=== PATIENT | male | born 2000 | race Caucasian/White ===

== ENCOUNTER 2023-05-05 18:24 | Emergency (ER) | payer BC, SELFPAY ==
[2023-05-05 18:46] VITALS: BP 117/74; PULSE 75; RESP 18; TEMP 36.9; O2SAT 98
--- NOTE | 2023-05-05 18:53 | ED.ANIMALBIT ---
HPI - Animal Bite General Chief Complaint: Skin/Abscess/Foreign Body Stated Complaint: dog bite right hand Time Seen by Provider: 05/05/23 18:50 Source: patient Mode of arrival: ambulatory Limitations: no limitations History of Present Illness HPI narrative: Kenneth is a 22-year-old male patient presenting to the clinic today with complaints of a dog bite/puncture wound to the right hand/wrist. Patient reports this [place] the dog park and his dog got into a scuffle with another dog and he tried to separate them and was bitten. Has a puncture wound to the right medial palm and minor abrasion over the volar aspect of the wrist. Last tetanus was when he was 14 Related Data Allergies Allergy/AdvReac Type Severity Reaction Status Date / Time No Known Allergies Allergy Verified 05/05/23 18:46 Review of Systems Review of Systems: Pertinent positives per HPI. Patient denies any fever, chills, rash, headache, visual changes, dizziness, cough, runny nose, sore throat, shortness of breath, chest pain, palpitations, nausea, vomiting, diarrhea, constipation, abdominal pain, or any urinary issues. PMFSH Comments At the time of my signature, I reviewed and agree with the nursing past medical, surgical, social, and family history. There is no relevant family history pertinent to the patient complaint. Exam Narrative: General: Well-developed, well nourished, in no apparent distress Head: Normocephalic, atraumatic. Cardio: Regular rate and rhythm, s1 and s2 normal, no murmur appreciated. Resp: Clear to auscultation bilaterally, no rhonchi, rales, wheezing or rubs. Integumentary: Whiteash, warm, and dry, puncture wound to the medial volar aspect of the right palm-bleeding controlled, 2 small abraded wounds to the right mid volar wrist Course Course Emergency Course: Portions of this record may have been created with voice recognition software. Level of Care: Express Care Visit Vital Signs Vital signs: Vital Signs Temperature 36.9 C 05/05/23 18:46 Pulse Rate 75 05/05/23 18:46 Respiratory Rate 18 05/05/23 18:46 Blood Pressure 117/74 05/05/23 18:46 Pulse Oximetry 98 05/05/23 18:46 Oxygen Delivery Room Air 05/05/23 18:46 Temperature 36.9 C 05/05/23 18:46 Pulse Rate 75 05/05/23 18:46 Respiratory Rate 18 05/05/23 18:46 Blood Pressure 117/74 05/05/23 18:46 Pulse Oximetry 98 05/05/23 18:46 Oxygen Delivery Room Air 05/05/23 18:46 Vital signs reviewed MDM - Animal Bite MDM Narrative Medical decision making narrative: At the time of visit patient is resting comfortably on the exam table. Dog bite instructions were reviewed with the patient he voiced understanding. Wound was cleansed. Bleeding is controlled. Triple Antibiotic ointment was placed over the wound Band-Aid was applied. Supportive measures were discussed with the patient he voiced understanding discharge instructions agrees to treatment plan. Will send in prescription for Augmentin. Tetanus shot was updated in the clinic today Differential Diagnosis Differential diagnosis: Likely bite by animal, dog bite and other (Puncture wound) Discharge Plan Discharge Clinical Impression: Dog bite Qualifiers: Encounter type: initial encounter Qualified Code(s): W54.0XXA - Bitten by dog, initial encounter Puncture wound of hand Qualifiers: Encounter type: initial encounter Foreign body presence: without foreign body Laterality: right Qualified Code(s): S61.431A - Puncture wound without foreign body of right hand, initial encounter Patient Disposition: Home, Self-Care Condition: Stable Instructions: Antibiotic Form, Animal Bite (ED), Puncture Wound (ED) Additional Instructions: Take Augmentin as prescribed Leave bandage on for 24 hours then may remove and apply band aide covering as needed. May apply triple antibiotic ointment to the wound twice daily times 48 hours Keep wound clean and dry Watch for
[2023-05-05] MEDS: TETANUS,DIPHTHERIA,AC PERTUSSIS ADULT (0.5 ML) BOOSTRIX IM (18:57)
== END 2023-05-05 19:03 | disposition home or self-care (01) ==
PROVIDERS: Emergency Provider Nurse Practitioner Family
DX: S61.431A Puncture wound without foreign body of right hand, initial encounter (principal); Z23 Encounter for immunization; W54.0XXA Bitten by dog, initial encounter
CPT/HCPCS: 90471; 90715; 99213; G0463